=== PATIENT | male | born 1970 | race Hispanic/Latino ===

== ENCOUNTER 2021-10-19 23:34 | Emergency (ER) | payer OTHER ==
[~2021-10-19] VITALS: Ht 170.2 cm; Wt 95.3 kg
[2021-10-19 23:42] VITALS: BP 174/109
[2021-10-20] MEDS ORDERED: KETOROLAC 60 MG VIAL (30MG/ML) IM ONE (00:30)
[2021-10-20] MEDS ORDERED: NEOMYCIN/POLYMYXIN/HC OTIC SUSP 10ML BOTTLE AS SCH (00:30)
[2021-10-20] MEDS ORDERED: CEFTRIAXONE 1G VIAL IM ONE (00:30)
[2021-10-20] MEDS ORDERED: IBUP-2070 PO (00:53)
[2021-10-20] MEDS ORDERED: AMOX-426 PO (00:53)
[2021-10-20] MEDS ORDERED: CORTSOL AS (00:53)
== END 2021-10-20 01:08 | disposition home or self-care (01) ==
LOC: EDH 23:34
DX: H60.11 Cellulitis of right external ear (principal); I10 Essential (primary) hypertension; Z79.1 Long term (current) use of non-steroidal anti-inflammatories (NSAID)
CPT/HCPCS: 96372 ×2; 99284; J0696; J1885

== ENCOUNTER 2025-02-17 18:16 | Emergency (ER) | payer BC ==
[~2025-02-17] VITALS: Ht 175.3 cm; Wt 95.3 kg
[~2025-02-17 18:16] MED LIST: AMOX-426 PO; CORTSOL AS; IBUP-1492 PO
--- NOTE | 2025-02-17 18:41 | ERN ---
ED Note History of Present Illness Stated Complaint: FALL Chief Complaint: Mechanical Fall Time Seen by MD: 18:25 Dictation: PATIENT IS A 54-YEAR-OLD MALE COMING IN TODAY WITH COMPLAINTS OF CUTTING PALM TREES EARLY TODAY WHEN HE FELL OFF A LADDER. UNKNOWN HEIGHT. HE STATES HE LANDED ON HIS BACK WITH THE RIGHT ARM EXTENDED. HE IS COMPLAINING OF LOW THORACIC AND LUMBAR PAIN. NO SCIATICA NO CHANGE IN URINATION. ALSO COMPLAINING OF RIGHT WRIST PAIN. HE IS NOT ON ANY BLOOD THINNERS DID NOT HIT HIS HEAD. NO TRAUMA ALERT CRITERIA AT THIS TIME. STATES HIS PAIN IS 10 OVER A 10 TO HOWEVER HE DOES NOT HAVE A DESIGNATED RESEARCH TECH. I ADVISED HIM THAT IT WOULD BE GLAD TO GIVE HIM MORE PAIN MANAGEMENT OTHER THAN TORADOL IF HE COULD GET A RIDE Allergies: Coded Allergies: No Known Drug Allergies (Unverified Allergy, Unknown, 10/20/21) Home Meds Active Scripts Ibuprofen (Ibuprofen) 600 Mg Tablet, 600 MG PO Q6H PRN for PAIN, #30 TAB 0 Refills Prov:HERMILA ESPINOZA MD 10/20/21 Neomy Sulf/Polymyx B Sulf/Hc (Cortisporin Otic Soln) 20 Drop/Ml Otsol, 4 DROP TID for 7 Days, #10 ML 0 Refills Prov:HERMILA ESPINOZA MD 10/20/21 Amoxicillin/Potassium Clav (Augmentin 500-125 Tablet) 1 Each Tablet, 1 EACH PO TID, #30 TAB 0 Refills Prov:HERMILA ESPINOZA MD 10/20/21 Past Medical History Past Medical History: No Pertinent History, Hypertension Surgical History: None RN Note Reviewed/Agreed w/PFSH: Yes Review of System Dictation CONSTITUTIONAL: NEGATIVE EXCEPT FOR HPI HEAD/FACE: NEGATIVE EXCEPT FOR HPI EENT: NEGATIVE EXCEPT FOR HPI RESPIRATORY: NEGATIVE EXCEPT FOR HPI GASTROINTESTINAL/ABDOMINAL: NEGATIVE EXCEPT FOR HPI GENITOURINARY: NEGATIVE EXCEPT FOR HPI MUSCULOSKELETAL: NEGATIVE EXCEPT FOR HP LOW THORACIC AND LUMBAR PAIN/RIGHT WRIST PAIN INTEGUMENTARY: NEGATIVE EXCEPT FOR HPI NEUROLOGICAL/PSYCH: NEGATIVE EXCEPT FOR HPI HEMATOLOGIC/LYMPHATIC: NEGATIVE EXCEPT FOR HPI ALL SYSTEMS NEGATIVE, EXCEPT NOTED ABOVE. 13 POINT REVIEW OF SYSTEMS ASSESSED AND ALL NEGATIVE EXCEPT FOR ABOVE. Initial Vital Sign VS Vital Signs Date Time Temp Pulse Resp B/P (MAP) Pulse Ox O2 Delivery O2 Flow Rate FiO2 02/17/25 18:19 98.4 99 20 140/81 98 Room Air 02/17/25 19:35 0 21 Physical Exam Dictation VITAL SIGNS REVIEWED GENERAL APPEARANCE: ALERT, ORIENTED X 3, MODERATE ACUTE DISTRESS, WELL DEVELOPED, NOURISHED. HEAD AND FACE: NON-TRAUMATIC. EYES: PERRL, PINK CONJUNCTIVAS, EYELID NO TRAUMA, ANTERIOR CHAMBER WITH ARCUS SENILIS. EARS: PINNAS INTACT AND NO SIGNS OF TRAUMA OR ERYTHEMA EAR CANALS CLEAR AND NO DISCHARGE TM NO ERYTHEMA NOSE: NO DISCHARGE, NO BLEEDING. OROPHARYNX: MOUTH NORMAL, TONGUE PINK, PHARYNX CLEAR,NO ERYTHEMA, TONSILS NO EXUDATES, NO ABSCESSES NOTED, MUCOUS MEMBRANE MOIST NECK: SUPPLE, NON-TENDER, NO THYROMEGALY, NO MASSES, NO JVD, NO BRUITS BREAST:DEFERRED CHEST:NO TENDERNESS, NO CREPITUS, NO PARADOXICAL MOVEMENT, NO RETRACTIONS LUNGS:CLEAR, WELL-VENTILATED, SYMMETRIC, NO RALES, NO WHEEZING, NO RHONCHI, NO STRIDOR, GOOD BREATH SOUNDS BILATERALLY HEART: REGULAR RATE, REGULAR RHYTHM, NO MURMUR, NO GALLOPS VASCULAR: NO PERIPHERAL EDEMA, ABDOMEN: SOFT, POSITIVE BOWEL SOUNDS, NONDISTENDED, NO GUARDING, NONTENDER, NO REBOUND, NO MASSES NO HEPATOMEGALY, NO SPLENOMEGALY, NO BROOKS'S SIGN, NO HERNIAS. RECTAL: DEFERRED GENITAL: DEFERRED NEUROLOGICAL: NORMAL SPEECH, MOTOR FUNCTION INTACT, SENSORY FUNCTION INTACT MUSCULOSKELETAL: NECK NONTENDER, FULL RANGE OF MOTION, DIFFUSE LOWER THORACIC AND LUMBAR TENDERNESS. NO STEP-OFFS. NEGATIVE STRAIGHT LEG RAISE BILATERALLY 10 EXTREMITIES: RIGHT WRIST PAIN WITH DECREASED RANGE OF MOTION SECONDARY TO PAIN. VASCULAR CMS INTACT TO ALL EXTREMITIES. SKIN: COLOR PINK, DRY, NO TURGOR, NO RASH, NO LACERATIONS, NO ABRASIONS, NO CONTUSIONS. LYMPHATIC: DEFERRED Results (Laboratory/Radiology) Laboratory/Radiology WRIST X-RAY NEGATIVE THORACIC FILM NEGATIVE LUMBAR X-RAY NEGATIVE Labs Reviewed?: Yes ED Course ED Course Orders Procedure Category Date Status Time Wrist Comp 3+Vws Rt RAD 02/17/25 Taken 18:36 Lumbar Spine 2-3vws RAD 02/17/25 Taken 18:36 Thoracic Spine 2vws RAD 02/17/25 Taken 18:36 Ketorolac 60mg/2ml PHA 02/17/25 In Process (Toradol 60mg/2ml) 19:00 Current Medications Medications (Trade) Dose Ordered Sig/Shireen Route PRN Reason Start Time Stop Time Status Last Admin Dose Admin Ketorolac Tromethamine (toRADol 60MG/ 2ML) 60 mg ONCE IM 02/17/25 19:00 02/17/25 22:00 02/17/25 19:41 Vital Signs Date Time Temp Pulse Resp B/P (MAP) Pulse Ox O2 Delivery O2 Flow Rate FiO2 02/17/25 19:35 98.2 92 16 136/74 98 Room Air* 0 21 02/17/25 18:19 98.4 99 20 140/81 98 Room Air 1940 DISCHARGED HOME NEUROLOGICALLY INTACT. HE WILL BE PRESCRIBED IBUPROFEN AND FLEXERIL TOLD TO SEE HIS DOCTOR ON WEDNESDAY. Medical Decision Making MDM MEDICAL DISCHARGE MAKING BASED ON PAIN MANAGEMENT AND X-RAYS OF RIGHT WRIST THORACIC AND LUMBAR SPINES. X-RAYS NEGATIVE PAIN IS MANAGED DISCHARGED HOME TO FOLLOW UP WITH HIS DOCTOR ON WEDNESDAY. DX & DISP Disposition: Discharge Departure Impression: Primary Impression: Contusion of right wrist, initial encounter Additional Impressions: Back contusion, Fall from ladder Condition: Stable Scripts Ibuprofen (Ibuprofen 800 mg Tab) 800 Mg Tab 800 MG PO Q8H PRN for fever or pain, #30 TAB 0 Refills Prov: ISAAK WORLEY NP 02/17/25 Cyclobenzaprine HCl (Cyclobenzaprine HCl) 10 Mg Tablet 1 TAB PO TID for muscle spasms for 10 Days, #30 TAB 0 Refills Prov: ISAAK WORLEY VICE PRESIDENT PAYER 02/17/25 Additional Instructions: FOLLOW-UP WITH PRIMARY CARE PROVIDER IN 1 TO 2 DAYS. TAKE MEDICATIONS DIRECTED HERE IN THE EMERGENCY ROOM. OKAY TO CONTINUE HOME MEDICATIONS UNLESS OTHERWISE DISCUSSED DURING YOUR VISIT IN THE EMERGENCY ROOM TODAY. RETURN TO YOUR NEAREST EMERGENCY ROOM IF SYMPTOMS WORSEN OR IF THERE IS NO IMPROVEMENT. CALL 911 IF YOU NEED IMMEDIATE ASSISTANCE. TAKE TYLENOL OR MOTRIN [id number] NEEDED AND IF NO CONTRAINDICATIONS ARE PRESENT. INCREASE ORAL HYDRATION. A WOUND CULTURE OR URINE CULTURE WAS ORDERED HERE IN THE EMERGENCY ROOM DEPARTMENT PLEASE FOLLOW-UP WITH PRIMARY CARE PROVIDER AND ADVISE THEM TO GET REPEAT PORTS FROM OUR FACILITY. IF YOU HAD ANY CECILIA WRAP/SPLINTS THAT WERE APPLIED HERE, PLEASE DO NOT REMOVE THEM UNTIL YOU SEE YOUR PRIMARY CARE OR SPECIALTY. TAKE IBUPROFEN AND FLEXERIL EVERY 8 HOURS WITH FOOD FOR THE NEXT TWO DAYS. COOL COMPRESSES TO PAIN THREE TO 4 TIMES A DAY. SEE YOUR PRIMARY CARE DOCTOR ON WEDNESDAY FOR FOLLOW UP Referrals: SELF,REFERRAL (PCP) Time of Disposition: 19:51 I have reviewed the case, and I agree with, Diagnosis and Plan ISAAK WORLEY VICE PRESIDENT PAYER Feb 17, 2025 18:41
--- NOTE | 2025-02-17 19:31 | NUR ---
moving to ft at 1914 pt reflects to be in this area however pt not present at this time lobb checked twice and no pt by this name found
--- NOTE | 2025-02-17 19:33 | NUR ---
pt located in radiology
[2025-02-17 19:35] VITALS: BP 136/74; PULSE 92; RESP 16; TEMP 98.3; O2SAT 98
[2025-02-17] MEDS ORDERED: IBUP-2077 PO (19:52)
[2025-02-17] MEDS ORDERED: CYCL-309 PO (19:52)
--- NOTE | 2025-02-17 21:01 | HMCIMG ---
EXAM: CR Lumbar Spine, 3 View. CLINICAL HISTORY: LUMBAR PAIN STATUS POST FALL FROM LADDER COMPARISON: None provided. FINDINGS: BONES: No acute fracture or aggressive appearing osseous lesion. ALIGNMENT: Alignment is within normal limits. No significant scoliosis. DISCS / DEGENERATIVE CHANGES: Mild lumbar spondylosis and multilevel degenerative disc disease. SOFT TISSUES: The soft tissues are unremarkable. Incidental gallstones. IMPRESSION: No acute lumbar spine abnormality evident. /[place]
--- NOTE | 2025-02-17 21:01 | HMCIMG ---
EXAM: CR Thoracic Spine, 2 View. CLINICAL HISTORY: LOW THORACIC PAIN STATUS POST FALL FROM LADDER COMPARISON: None provided. FINDINGS: BONES: No acute fracture or aggressive appearing osseous lesion. DISCS / DEGENERATIVE CHANGES: Thoracic spondylosis evident by small to moderate anterior flowing osteophytes and syndesmophytes at multiple levels. Mild multilevel degenerative disc disease. SOFT TISSUES: The paraspinal soft tissue lines are unremarkable. The visualized lungs are clear. MISCELLANEOUS: Visualization of the upper thoracic spine is limited on the lateral view by overlying structures. IMPRESSION: 1. No acute osseous injury. 2. Thoracic spondylosis with mild multilevel degenerative disc disease. /[place]
--- NOTE | 2025-02-17 21:02 | HMCIMG ---
EXAM: CR right Wrist, 3 View. CLINICAL HISTORY: RIGHT WRIST PAIN AFTER FALL FROM LADDER COMPARISON: None provided. FINDINGS: BONES: No acute osseous abnormality. No acute fracture. JOINTS: No dislocation. The carpal bones demonstrate normal alignment. SOFT TISSUES: The soft tissues are unremarkable. IMPRESSION: No acute osseous abnormality. No acute fracture or dislocation. /[place]
== END 2025-02-17 20:20 | disposition home or self-care (01) ==
LOC: EDH 18:16
DX: S60.211A Contusion of right wrist, initial encounter (principal); S30.0XXA Contusion of lower back and pelvis, initial encounter; W11.XXXA Fall on and from ladder, initial encounter; Y93.89 Activity, other specified; Y92.89 Other specified places as the place of occurrence of the external cause; Y99.8 Other external cause status
CPT/HCPCS: 99284; 72100; 72070; 73110; 96372; J1885